=== PATIENT | female | born 1950 | race Caucasian/White ===

== ENCOUNTER → 2019-02-06 | Outpatient (CLI) | payer MEDICARE ==
[~2019-02-06] MED LIST: ABILIFY15 MG PO; DICYCLOMINE HCL20 MG PO; FLUTICASONE; HYDROXYZINE HCL50 MG PO; LISINOPRIL10 MG PO; METOLAZONE5 MG PO; NEURONTIN300 MG PO; NITROGLYCERIN0.4 MG SL; PHENOBARBITAL64.8 MG PO; PLAVIX75 MG PO; PREDNISONE10 MG PO; SPIRONOLACTONE25 MG PO; TOPROL XL50 MG PO; VITAMIN D PO; XOPENEX; ZETIA10 MG PO
--- NOTE | 2019-02-16 09:16 | Diagnostic Imaging Report ---
#[id number] - MGSCRBIL #BILATERAL DIGITAL SCREENING MAMMOGRAM WITH CAD: 02/06/2019 CLINICAL: Routine screening. Comparison is made to exams dated: 04/21/2015 mammogram and 12/04/2013 mammogram - [facility]. Current study contains 4 films. There are scattered fibroglandular elements in both breasts. Current study was also evaluated with a Computer Aided Detection (CAD) system. Benign calcification is present in the left breast. No significant masses, calcifications, or other findings are seen in either breast. IMPRESSION: BENIGN There is no mammographic evidence of malignancy. A 1 year screening mammogram is recommended. The patient will be notified by letter of the results. CAROLE ROBERTS M.D. ct/penrad:02/15/2019 09:01:03 Sales And Service Specialist: Ashley HOOPER(R)(M), [facility] letter sent: Normal Exam Mammogram BI-RADS: 2 Benign
== END ==
LOC: MAMMO 08:19
PROVIDERS: ATTEND Internal Medicine
DX: Z12.31 Encounter for screening mammogram for malignant neoplasm of breast (principal)
CPT/HCPCS: 77067

== ENCOUNTER → 2021-11-10 | Outpatient (CLI) | payer MEDICARE | LOC: MAMMO 09:52 | PROVIDERS: ATTEND Family Medicine | DX: Z12.31 Encounter for screening mammogram for malignant neoplasm of breast (principal) | CPT/HCPCS: 77067 ==

== ENCOUNTER → 2022-01-20 | Day surgery (SDC) | payer MEDICARE ==
[2022-01-13 14:34] LABS: BASOPHILS # (AUTO) 0.1 (0.0-0.1); BASOPHILS % 0.5 % (0.0-1.0); EOSINOPHILS # (AUTO) 0.3 (0.0-0.4); EOSINOPHILS % 2.2 % (0.0-6.0); HEMATOCRIT 42.8 % (34.2-44.1); HEMOGLOBIN 14.1 g/dL (12.0-16.0); LYMPHOCYTES # (AUTO) 3.4 (1.0-3.2); LYMPHOCYTES % 27.5 % (18.0-39.1); MEAN CORPUSCULAR HEMOGLOBIN 32.3 pg (28-32); MEAN CORPUSCULAR HGB CONC 32.9 g/dL (31-35); MEAN CORPUSCULAR VOLUME 97.9 fL (81-99); MONOCYTES % 7.7 % (4.4-11.3); NEUTROPHILS # (AUTO) 7.7 (2.1-6.9); NEUTROPHILS % 61.7 % (38.7-80.0); PLATELET COUNT 268 x10e3/uL (140-360); RED BLOOD COUNT 4.37 x10e6/uL (3.6-5.1); RED CELL DISTRIBUTION WIDTH 13.1 % (11.7-14.4)
[~2022-01-20] MED LIST changes: +AMLODIPINE BESY10 MG PO; +ASPIRIN81 MG PO; +ATORVASTATIN CA20 MG PO; +BUSPIRONE HCL5 MG PO; +COREG12.5 MG PO; +DOXEPIN HCL50 MG PO; +DUPIXENT300 MG/2 M INJ; +FENTANYL CITRATE/PF 100MCG/2 ML INJ ONE; +GLUCOSAMINE-CH1 EACH PO; +IMODIUM2 MG PO; +LASIX20 MG PO; +LIDOCAINE HCL 2% LOCAL INJ 5 ML SDV VIAL INJ ONE; +METFORMIN HCL500 MG PO; +METOCLOPRAMIDE HCL 10 MG/2ML VIAL ONE; +MIDAZOLAM HCL 2 MG/2 ML VIAL ONE; +MONTELUKAST SOD10 MG PO; +ONDANSETRON ODT4 MG PO; +PROBIOTIC & AC1 EACH PO; +PROPOFOL IV EMULSION 10 MG/ML 20 ML VIAL ONE; +SUCRALFATE1 GM PO; +SYMBICORT 16010.2 GM INH; +VITAMIN D2 PO; +ZYRTEC10 M3 PO
[2022-01-20 08:45] VITALS: BP 131/80
== END | disposition home or self-care (01) ==
LOC: OR 05:27
PROVIDERS: ATTEND Internal Medicine Gastroenterology
DX: K29.50 Unspecified chronic gastritis without bleeding (principal); K31.7 Polyp of stomach and duodenum; K31.89 Other diseases of stomach and duodenum; K20.90 Esophagitis, unspecified without bleeding; K58.0 Irritable bowel syndrome with diarrhea; K57.90 Diverticulosis of intestine, part unspecified, without perforation or abscess without bleeding; Z71.3 Dietary counseling and surveillance; D68.9 Coagulation defect, unspecified; I10 Essential (primary) hypertension; I25.10 Atherosclerotic heart disease of native coronary artery without angina pectoris; E78.5 Hyperlipidemia, unspecified; E11.9 Type 2 diabetes mellitus without complications; E66.01 Morbid (severe) obesity due to excess calories; J45.909 Unspecified asthma, uncomplicated; G40.909 Epilepsy, unspecified, not intractable, without status epilepticus; M06.9 Rheumatoid arthritis, unspecified; M19.90 Unspecified osteoarthritis, unspecified site; G62.9 Polyneuropathy, unspecified; M54.9 Dorsalgia, unspecified; F31.9 Bipolar disorder, unspecified; Z88.6 Allergy status to analgesic agent; Z88.1 Allergy status to other antibiotic agents; Z88.0 Allergy status to penicillin; Z88.8 Allergy status to other drugs, medicaments and biological substances; Z01.810 Encounter for preprocedural cardiovascular examination; Z01.812 Encounter for preprocedural laboratory examination; Z79.02 Long term (current) use of antithrombotics/antiplatelets; Z79.82 Long term (current) use of aspirin; Z79.84 Long term (current) use of oral hypoglycemic drugs; Z79.899 Other long term (current) drug therapy; Z68.41 Body mass index [BMI] 40.0-44.9, adult; Z98.61 Coronary angioplasty status
CPT/HCPCS: 36415 ×2; 43239; 82948; 85025; 88305; 88342; 93005; C9113; J2001; J2250; J2704; J2765; J3010; 88304; 88312

== ENCOUNTER → 2022-01-22 | Outpatient (CLI) | payer MEDICARE ==
[~2022-01-22] MED LIST changes: -FENTANYL CITRATE/PF 100MCG/2 ML INJ ONE; -LIDOCAINE HCL 2% LOCAL INJ 5 ML SDV VIAL INJ ONE; -METOCLOPRAMIDE HCL 10 MG/2ML VIAL ONE; -MIDAZOLAM HCL 2 MG/2 ML VIAL ONE; -PROPOFOL IV EMULSION 10 MG/ML 20 ML VIAL ONE
== END ==
LOC: NM 12:07
PROVIDERS: ATTEND Internal Medicine Gastroenterology
DX: K29.70 Gastritis, unspecified, without bleeding (principal); R19.5 Other fecal abnormalities
CPT/HCPCS: 78278; A9512 ×2